=== PATIENT | male | born 1970 | race Caucasian/White ===

== ENCOUNTER 2017-03-22 13:53 | Emergency (ER) | payer SELFPAY ==
[~2017-03-22] VITALS: Ht 162.6 cm; Wt 73.0 kg
[2017-03-22] MEDS ORDERED: FOLIC ACID 1 MG, THIAMINE HCL 100 MG, MVI, ADULT NO.1 10 ML in DEXTROSE 5% WATER 1,000 ML IV ONE ×4 (14:15)
[2017-03-23] MEDS ORDERED: AMOXICILLIN 500 MG CAPSULE PO ONE (06:00)
[2017-03-23 07:39] VITALS: BP 102/70
== END 2017-03-23 06:15 | disposition home or self-care (01) ==
LOC: EDBD → ER 13:53
DX: S00.33XA Contusion of nose, initial encounter (principal); T51.91XA Toxic effect of unspecified alcohol, accidental (unintentional), initial encounter; G92 Toxic encephalopathy; Y92.89 Other specified places as the place of occurrence of the external cause; W19.XXXA Unspecified fall, initial encounter; Y93.89 Activity, other specified; Y99.8 Other external cause status
CPT/HCPCS: 36415; 70450; 70486; 72125; 96365; 96366; 99285; G0482; J3411; J3490; J7070; Z7610